=== PATIENT | female | born 1970 | race Caucasian/White ===

== ENCOUNTER → 2020-09-11 | Outpatient (CLI) | payer OTHER | END | disposition home or self-care (01) | LOC: RAD 07:33 | PROVIDERS: ATTEND Clinical Nurse Specialist | DX: K44.9 Diaphragmatic hernia without obstruction or gangrene (principal); K22.8 Other specified diseases of esophagus; K95.09 Other complications of gastric band procedure | CPT/HCPCS: 74240 ==

== ENCOUNTER → 2020-11-05 | Outpatient (CLI) | payer OTHER ==
[~2020-11-05] MED LIST: CITA20TA6 PO
== END | disposition home or self-care (01) ==
LOC: STAR 08:07
PROVIDERS: ATTEND Thoracic Surgery (Cardiothoracic Vascular Surgery)
DX: Z20.822 Contact with and (suspected) exposure to COVID-19 (principal); K44.9 Diaphragmatic hernia without obstruction or gangrene
CPT/HCPCS: 87635

== ENCOUNTER 2020-11-11 05:56 | Observation (INO) | payer OTHER ==
[~2020-11-11] VITALS: Ht 170.2 cm; Wt 85.0 kg
[2020-11-11] MEDS ORDERED: BUPIVACAINE/PF 0.5% ONE (06:47)
[2020-11-11] MEDS ORDERED: EPINEPHRINE 1 MG/ML, 1ML ONE (06:47)
[2020-11-11] MEDS ORDERED: MIDAZOLAM 1 MG/ML, 2ML ONE (07:00)
[2020-11-11] MEDS ORDERED: LIDOCAINE-MPF 1%, 2ML INFIL ONE (07:00)
[2020-11-11] MEDS ORDERED: LACTATED RINGERS 1,000 ML IV SCH (07:00)
[2020-11-11] MEDS ORDERED: CHLORHEXIDINE 15 ML UDC MM ONE (07:00)
[2020-11-11] MEDS ORDERED: FENTANYL PF 250 MCG/5ML ONE (07:00)
[2020-11-11] MEDS ORDERED: BUPIVACAINE/PF-EPI 0.5% 1:200K INFIL ONE (07:45)
[2020-11-11] MEDS ORDERED: EPHEDRINE 50 MG/ML, 1ML IVPush PRN (08:30)
[2020-11-11] MEDS ORDERED: FENTANYL PF 100 MCG/2ML IV PRN (08:30)
[2020-11-11] MEDS ORDERED: METOPROLOL 1 MG/ML, 5ML IV PRN (08:30)
[2020-11-11] MEDS ORDERED: PROMETHAZINE 25 MG/ML, 1ML IVPush PRN (08:30)
[2020-11-11] MEDS ORDERED: ONDANSETRON 2MG/ML, 2ML IVPush PRN ×2 (08:30→09:30)
[2020-11-11] MEDS ORDERED: LABETALOL 5MG/ML, 20ML IV PRN (08:30)
[2020-11-11] MEDS ORDERED: hydrALAzine 20 MG/ML, 1ML IV PRN ×2 (08:30→09:30)
[2020-11-11] MEDS ORDERED: DIPHENHYDRAMINE 50 MG/ML, 1ML IVPush PRN (08:30)
[2020-11-11] MEDS ORDERED: METOCLOPRAMIDE 5 MG/ML, 2ML IVPush PRN (08:30)
[2020-11-11] MEDS ORDERED: HYDROmorphone 1 MG/ML, 1ML INJ IVPush PRN (08:30)
[2020-11-11] MEDS ORDERED: HALOPERIDOL 5 MG/ML IV PRN (08:30)
[2020-11-11] MEDS ORDERED: ACETAMINOPHEN 325 MG TABLET PO PRN (08:30)
[2020-11-11] MEDS ORDERED: DIAZEPAM 5 MG/ML, 2ML IVPush PRN (08:30)
[2020-11-11] MEDS ORDERED: OXYcodone 5 MG/5 ML ORAL.SOL UDC PO PRN (08:30)
[2020-11-11] MEDS ORDERED: HYDROcodone/APAP 7.5-325MG/15ML UDC PO PRN (09:30)
[2020-11-11] MEDS ORDERED: ENALAPRILAT 1.25 MG/ML, 2ML IV PRN (09:30)
[2020-11-11] MEDS ORDERED: DIPHENHYDRAMINE 50 MG/ML, 1ML IV PRN (09:30)
[2020-11-11] MEDS ORDERED: PROMETHAZINE 25 MG/ML, 1ML IM PRN (09:30)
[2020-11-11] MEDS ORDERED: PROMETHAZINE 12.5 MG SUPP PR PRN (09:30)
[2020-11-11] MEDS: LACTATED RINGERS 1,000 ML IV SCH ×2 (09:30→17:30)
[2020-11-11] MEDS ORDERED: LORazepam 2 MG/ML, 1ML IV PRN (09:30)
[2020-11-11] MEDS ORDERED: HYDR5SOL2 PO (09:36)
[2020-11-11] MEDS ORDERED: ACETAMINOPHEN 650 MG/20.3 ML UDC ONE (09:40)
[2020-11-11] MEDS ORDERED: FENTANYL PF 100 MCG/2ML ONE (09:40)
[2020-11-11] MEDS ORDERED: OXYcodone 5 MG/5 ML ORAL.SOL UDC ONE (09:41)
[2020-11-11] MEDS ORDERED: ONDANSETRON 2MG/ML, 2ML ONE ×2 (09:58→15:39)
[2020-11-11] MEDS ORDERED: KETOROLAC 30 MG/1 ML ONE (10:05)
[2020-11-11] MEDS: KETOROLAC 30 MG/1 ML IV PRN ×2 (10:06→18:19)
[2020-11-11] MEDS ORDERED: PROMETHAZINE 25 MG/ML, 1ML ONE (10:15)
[2020-11-11 12:30] VITALS: BP 139/76
[2020-11-11] MEDS: FAMOTIDINE 20 MG/2 ML IV SCH ×2 (12:55→22:02)
[2020-11-11] MEDS: morphine SULFATE 10 MG/ML, 1ML IV PRN ×2 (13:12→13:40)
[2020-11-11] MEDS ORDERED: CEFAZOLIN 1,000 MG ONE (15:39)
[2020-11-11] MEDS ORDERED: SUGAMMADEX 200 MG/2 ML IVPush ONE (15:39)
[2020-11-11] MEDS ORDERED: DEXAMETHASONE 4 MG/ML, 1ML ONE (15:39)
[2020-11-11] MEDS ORDERED: SUCCINYLCHOLINE 20 MG/ML, 10ML ONE (15:39)
[2020-11-11] MEDS ORDERED: PHENYLEPHRINE 10 MG/ML ONE (15:39)
[2020-11-11] MEDS ORDERED: PROPOFOL 10 MG/ML, 20ML ONE (15:39)
[2020-11-11] MEDS ORDERED: ROCURONIUM 10MG/ML,5ML ONE (15:39)
[2020-11-11] MEDS ORDERED: hydrALAzine 20 MG/ML, 1ML ONE (15:39)
[2020-11-11 19:22] VITALS: BP 158/99
[2020-11-12 00:07] VITALS: BP 134/82
[2020-11-12] MEDS: LACTATED RINGERS 1,000 ML IV SCH ×2 (01:30→09:30)
[2020-11-12 04:23] VITALS: BP 138/85
[2020-11-12] MEDS ORDERED: ENOXAPARIN 40 MG/0.4 ML SQ SCH (09:00)
[2020-11-12] MEDS: FAMOTIDINE 20 MG/2 ML IV SCH (09:19)
[2020-11-12] MEDS: KETOROLAC 30 MG/1 ML IV PRN (09:23)
[2020-11-12 12:54] VITALS: BP 142/88
== END 2020-11-12 13:10 | disposition home or self-care (01) ==
LOC: OUT 05:56 → 4NE 10:59 → INTOOBSV 22:52 → 4NE 22:52 → OUT 22:52
PROVIDERS: ADMIT Thoracic Surgery (Cardiothoracic Vascular Surgery); ATTEND Thoracic Surgery (Cardiothoracic Vascular Surgery)
DX: K44.9 Diaphragmatic hernia without obstruction or gangrene (principal); K21.9 Gastro-esophageal reflux disease without esophagitis; K22.8 Other specified diseases of esophagus; J45.909 Unspecified asthma, uncomplicated; E66.01 Morbid (severe) obesity due to excess calories; Z79.899 Other long term (current) drug therapy; Z98.84 Bariatric surgery status
CPT/HCPCS: 43282; 96372; 96374; 96375; 96376; C1781; G0378; J0171; J0330; J0360; J0690; J1100; J1650; J1885; J2250; J2270; J2370; J2405; J2550; J2704; J3010; J7120; S0020